=== PATIENT | male | born 1975 | race Caucasian/White ===

== ENCOUNTER 2020-02-05 04:23 | Emergency (ER) | payer SELFPAY ==
--- NOTE | 2020-02-05 04:30 | NUR ---
CALLED TO TRIAGE, NO ANSWER
--- NOTE | 2020-02-05 04:50 | NUR ---
CALLED TO TRIAGE, NO ANSWER
== END 2020-02-05 04:53 | disposition left against medical advice (07) ==
LOC: ER 04:23
DX: Z53.21 Procedure and treatment not carried out due to patient leaving prior to being seen by health care provider (principal)

== ENCOUNTER 2023-09-06 03:47 | Emergency (ER) | payer MEDICAID ==
[~2023-09-06] VITALS: Ht 177.8 cm; Wt 122.5 kg
== END 2023-09-06 04:18 | disposition home or self-care (01) ==
LOC: ER 03:47
DX: G89.29 Other chronic pain (principal); M54.50 Low back pain, unspecified; M25.562 Pain in left knee; F17.200 Nicotine dependence, unspecified, uncomplicated; Z90.49 Acquired absence of other specified parts of digestive tract; Z91.040 Latex allergy status; Z88.0 Allergy status to penicillin